=== PATIENT | male | born 1930 | race Caucasian/White ===

== ENCOUNTER 2017-05-18 11:04 | Emergency (ER) | payer MEDICARE, OTHER ==
--- NOTE | 2017-05-18 11:32 | Emergency Department Record ---
History of Present Illness - General Chief Complaint: Recheck - Other Stated Complaint: THINKS HE HAS KIDNEY FAILURE Time Seen by Provider: 05/18/17 11:23 Source: Patient, RN notes reviewed - History of Present Illness Initial Comments: Patient was called to come to the Ed because of renal failure labs drawn by Hien with Dr. Mclain and BUN 176 and creatinine 4.4. K5.1. Patient states not eating or drinking for 2 weeks and taking some ensure and some water. Patient is a DNR patient. No pain, sleeping and last week he had lower back pain. MD Complaint: Abnormal lab - Related Data Allergies Allergy/AdvReac Type Severity Reaction Status Date / Time PENICILLIN Allergy Severe anaphylacti Uncoded 05/18/17 11:17 c Review of Systems Reviewed: No additional complaints except as noted below Constitutional: Reports: As per HPI, Weight change. Denies: Chills, Fever, Malaise, Night sweats, Weakness Eyes: Reports: As per HPI. Denies: Eye discharge, Eye pain, Photophobia, Vision change ENT: Reports: As per HPI. Denies: Congestion, Dental pain, Ear pain, Epistaxis , Hearing loss, Throat pain Respiratory: Reports: As per HPI. Denies: Cough, Dyspnea, Hemoptysis, Stridor, Wheezes Cardiovascular: Reports: As per HPI. Denies: Arrhythmia, Chest pain, Dyspnea on exertion, Edema, Murmurs, Orthopnea, Palpitations, Paroxysmal nocturnal dyspnea, Rheumatic Fever, Syncope Endocrine: Reports: As per HPI. Denies: Fatigue, Heat or cold intolerance, Polydipsia, Polyuria Gastrointestinal: Reports: As per HPI. Denies: Abdominal pain, Constipation, Diarrhea, Hematemesis, Hematochezia, Melena, Nausea, Vomiting Genitourinary: Reports: As per HPI. Denies: Dysuria, Frequency, Hematuria, Incontinence, Retention, Testicular pain, Testicular mass, Urgency Musculoskeletal: Reports: As per HPI. Denies: Arthralgia, Back pain, Gout, Joint swelling, Myalgia, Neck pain Skin: Reports: As per HPI. Denies: Bruising, Change in color, Change in hair/ nails, Lesions, Pruritus, Rash Neurological: Reports: As per HPI. Denies: Abnormal gait, Confusion, Headache, Numbness, Paresthesias, Seizure, Tingling, Tremors, Vertigo, Weakness Psychiatric: Reports: As per HPI. Denies: Anxiety, Auditory hallucinations, Depression, Homicidal thoughts, Suicidal thoughts, Visual hallucinations Hematological/Lymphatic: Reports: As per HPI. Denies: Anemia, Blood Clots, Easy bleeding, Easy bruising, Swollen glands Physical Exam - General General Appearance: Alert, Oriented x3, Cooperative, Moderate distress, Other ( weak ) - Head Head exam: Normal inspection - Eye Eye exam: Normal appearance, PERRL Pupils: Normal accommodation - ENT ENT exam: Mucous membranes dry, Normal external ear exam, Normal orophraynx, TM' s normal bilaterally Ear exam: Normal external inspection. negative: External canal tenderness Nasal Exam: Normal inspection. negative: Discharge, Sinus tenderness Mouth exam: Normal external inspection, Tongue normal Teeth exam: Normal inspection. negative: Dental caries Throat exam: Normal inspection. negative: Tonsillar erythema, Tonsillar exudate - Neck Neck exam: Normal inspection, Full ROM. negative: Tenderness - Respiratory Respiratory exam: Normal lung sounds bilaterally. negative: Respiratory distress - Cardiovascular Cardiovascular Exam: Regular rate, Normal rhythm, Normal heart sounds - GI/Abdominal GI/Abdominal exam: Soft, Normal bowel sounds. negative: Tenderness - Rectal Rectal exam: Deferred - exam: Deferred - Extremities Extremities exam: Normal inspection, Full ROM, Normal capillary refill, Other ( no edema of legs). negative: Tenderness - Back Back exam: Reports: Normal inspection, Full ROM. Denies: Muscle spasm, Rash noted, Tenderness - Neurological Neurological exam: Alert, Normal gait, Oriented X3, Reflexes normal - Psychiatric Psychiatric exam: Normal affect, Normal mood - Skin Skin exam: Dry, Intact, Normal color, Warm Course - Reevaluation(s) Reevaluation #1: Discussed case with Dr. Do and will transfer to [facility] 05/18/17 11:49 Reevaluation #2: rectal exam brown stool loose , hemoccult positive 05/18/17 13:47 Disposition Clinical Impression: Dehydration Renal failure Qualifiers: Renal failure chronicity: acute Acute renal failure type: unspecified Qualified Code(s): N17.9 - Acute kidney failure, unspecified Hypotension Qualifiers: Hypotension type: unspecified hypotension type Qualified Code(s): I95.9 - Hypotension, unspecified Anemia Qualifiers: Anemia type: unspecified type Qualified Code(s): D64.9 - Anemia, unspecified GI bleed Qualifiers: GI bleed type/associated pathology: unspecified gastrointestinal hemorrhage type Qualified Code(s): K92.2 - Gastrointestinal hemorrhage, unspecified Disposition: Acute Care Hospital Transfer Condition: (2) Stable Forms: Patient Portal Access Time of Disposition: 13:49 Quality - Quality Measures Quality Measures: N/A - Blood Pressure Screening Does Patient Have Any of the Following: No Blood Pressure Classification: Normal BP Reading Systolic Measurement: 80 Diastolic Measurement: 50 Screening for High Blood Pressure: < Normal BP, F/U Not Required > [G8783]
[2017-05-18] MEDS ORDERED: 0.9 % SODIUM CHLORIDE 1,000 ML BAG IV ONE (11:37)
[2017-05-18] MEDS ORDERED: 0.9 % SODIUM CHLORIDE 1000ML 1,000 ML IV SCH ×2 (13:15→13:45)
[2017-05-18] MEDS ORDERED: 0.9 % SODIUM CHLORIDE 500ML 500 ML IV SCH (13:15)
--- NOTE | 2017-05-20 08:18 | RADIOLOGY REPORT ---
EXAM: CHEST , SINGLE VIEW HISTORY: COUGH, MALAISE. TECHNIQUE: A single AP sitting view of the chest was obtained. Comparison: None. FINDINGS: the heart size is within normal limits. Calcification and torsion of the aorta. Minor linear fibrosis or discoid atelectasis left base. deformity left mid clavicle likely due to an old healed fracture. Thoracic curve to the right with hypertrophic spurring in the spine. Mild blunting of the left lateral costophrenic angle by fluid or thickened pleura. IMPRESSION: 1. TORSION OF THE AORTA. 2. BLUNTING OF THE LEFT LATERAL COSTOPHRENIC ANGLE BY FLUID OR THICKENED PLEURA , AND SOME MINOR LINEAR FIBROSIS OR DISCOID ATELECTASIS IN THE LEFT BASE. 3. OLD LEFT CLAVICULAR FRACTURE. THORACIC CURVE TO THE RIGHT WITH HYPERTROPHIC SPURRING IN THE SPINE. JOB NUMBER: [id number] MTDD
== END 2017-05-18 13:29 | disposition short-term general hospital (02) ==
LOC: ER 11:04
DX: K92.2 Gastrointestinal hemorrhage, unspecified (principal); R53.1 Weakness; E78.5 Hyperlipidemia, unspecified; N17.9 Acute kidney failure, unspecified; I95.9 Hypotension, unspecified; D64.9 Anemia, unspecified; E86.0 Dehydration
CPT/HCPCS: 71010; 80053; 84484; 85025; 93005; 93010; 99284; 99285

== ENCOUNTER 2017-11-27 14:52 | Inpatient (IN) | payer MEDICARE ==
--- NOTE | 2017-11-27 15:41 | Emergency Department Record ---
History of Present Illness - General Chief Complaint: Fall Injury Stated Complaint: FELL 3X TODAY,LOW BLOOD PRESSURE Time Seen by Provider: 11/27/17 15:32 Source: Patient, RN notes reviewed Mode of Arrival: Wheelchair - History of Present Illness Initial Comments: patient falling times three with a laceration of the right elbow and the skin is no thin to sew. No chest pain or dyspnea and his primary is Hien brown. PMH kidney stones. pale. 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 Fall Witnessed: No Place Fall Occurred: Home Loss of Consciousness: None Prolonged Down Time?: No Symptoms Prior to Fall: None Context: Other Associated Symptoms: Denies - Related Data Home Medications Medication Instructions Recorded Confirmed Last Taken Glyburide [Glyburide] 2.5 mg PO DAILY 11/27/17 11/27/17 Unknown Lisinopril/Hydrochlorothiazide 1 tab PO DAILY 11/27/17 11/27/17 Unknown [Lisinopril-Hctz 20-25 mg Tab] Allergies Allergy/AdvReac Type Severity Reaction Status Date / Time PENICILLIN Allergy Severe anaphylacti Uncoded 05/18/17 11:17 c Travel Screening - Travel/Exposure Within Last 30 Days Have you traveled within the last 30 days?: No Review of Systems Reviewed: No additional complaints except as noted below Constitutional: Reports: As per HPI. Denies: Chills, Fever, Malaise, Night sweats, Weakness, Weight change Eyes: Reports: As per HPI. Denies: Eye discharge, Eye pain, Photophobia, Vision change ENT: Reports: As per HPI. Denies: Congestion, Dental pain, Ear pain, Epistaxis , Hearing loss, Throat pain Respiratory: Reports: As per HPI. Denies: Cough, Dyspnea, Hemoptysis, Stridor, Wheezes Cardiovascular: Reports: As per HPI. Denies: Arrhythmia, Chest pain, Dyspnea on exertion, Edema, Murmurs, Orthopnea, Palpitations, Paroxysmal nocturnal dyspnea, Rheumatic Fever, Syncope Endocrine: Reports: As per HPI. Denies: Fatigue, Heat or cold intolerance, Polydipsia, Polyuria Gastrointestinal: Reports: As per HPI. Denies: Abdominal pain, Constipation, Diarrhea, Hematemesis, Hematochezia, Melena, Nausea, Vomiting Genitourinary: Reports: As per HPI. Denies: Dysuria, Frequency, Hematuria, Incontinence, Retention, Testicular pain, Testicular mass, Urgency Musculoskeletal: Reports: As per HPI. Denies: Arthralgia, Back pain, Gout, Joint swelling, Myalgia, Neck pain Skin: Reports: As per HPI. Denies: Bruising, Change in color, Change in hair/ nails, Lesions, Pruritus, Rash Neurological: Reports: As per HPI. Denies: Abnormal gait, Confusion, Headache, Numbness, Paresthesias, Seizure, Tingling, Tremors, Vertigo, Weakness Psychiatric: Reports: As per HPI. Denies: Anxiety, Auditory hallucinations, Depression, Homicidal thoughts, Suicidal thoughts, Visual hallucinations Hematological/Lymphatic: Reports: As per HPI. 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 - GI Hx GI Disorders: No - Hx Genitourinary Disorders: No - ENDOCRINE Hx Endocrine Disorders: Yes Hx Diabetes: Yes - MUSCULOSKELETAL Hx Musculoskeletal Disorders: No - PSYCH Hx Psych Problems: No - HEMATOLOGY/ONCOLOGY Hx Hematology/Oncology Disorders: No Family Medical History Any Significant Family History?: No Physical Exam - General General Appearance: Alert, Oriented x3, Cooperative, No acute distress - Head Head exam: Normal inspection - Eye Eye exam: Normal appearance, PERRL Pupils: Normal accommodation - ENT ENT exam: Normal exam, Mucous membranes moist, Normal external ear exam, Normal orophraynx, TM's normal bilaterally Ear exam: Normal external inspection. negative: External canal tenderness Nasal Exam: Normal inspection. negative: Discharge, Sinus tenderness Mouth exam: Normal external inspection, Tongue normal Teeth exam: Normal inspection. negative: Dental caries Throat exam: Normal inspection. negative: Tonsillar erythema, Tonsillar exudate - Neck Neck exam: Normal inspection, Full ROM. negative: Tenderness - Respiratory Respiratory exam: Normal lung sounds bilaterally. negative: Respiratory distress - Cardiovascular Cardiovascular Exam: Regular rate, Normal rhythm, Normal heart sounds - GI/Abdominal GI/Abdominal exam: Soft, Normal bowel sounds. negative: Tenderness - Rectal Rectal exam: Prostate enlargement, Other (huma colored stools and hemoccult sent to lab) - exam: Deferred - Extremities Extremities exam: Normal inspection, Full ROM, Normal capillary refill. negative: Tenderness - Back Back exam: Reports: Normal inspection, Full ROM. Denies: Muscle spasm, Rash noted, Tenderness - Neurological Neurological exam: Alert, Normal gait, Oriented X3, Reflexes normal - Psychiatric Psychiatric exam: Normal affect, Normal mood - Skin Skin exam: Dry, Intact, Normal color, Warm Course Vital Signs 11/27/17 15:05 Temperature 98.4 F Pulse Rate 86 Respiratory 20 Rate Blood Pressure 121/63 Pulse Ox 98 - Reevaluation(s) Reevaluation #1: discussed case with Genesis Mattson and will admit. 11/27/17 17:04 11/27/17 17:10 Medical Decision Making - Data Complexity MDM Data: Labs Ordered and/or Reviewed (hg 6.0) - Lab Data Result diagrams: 11/27/17 15:12 11/27/17 15:12 Disposition Clinical Impression: Weight loss Anemia Qualifiers: Anemia type: unspecified type Qualified Code(s): D64.9 - Anemia, unspecified UTI (urinary tract infection) Qualifiers: Urinary tract infection type: acute cystitis Hematuria presence: with hematuria Qualified Code(s): N30.01 - Acute cystitis with hematuria Decision to Admit: Admit from ER Condition: (2) Stable Forms: Patient Portal Access Quality - Quality Measures Quality Measures: N/A - Blood Pressure Screening Does Patient Have Any of the Following: No Blood Pressure Classification: Pre-Hypertensive BP Reading Systolic Measurement: 121 Diastolic Measurement: 63 Screening for High Blood Pressure: < Normal BP, F/U Not Required > [G8783]
[2017-11-27 16:04] LABS: HEMATOCRIT 21.2 % (42.0-52.0); MEAN CELL VOLUME 61.3 fl (81-97); MEAN CORPUSCULAR HEMOGLOBIN 17.3 pg (27-33); MEAN CORPUSCULAR HGB CONC 28.3 g/dl (32-36); MEAN PLATELET VOLUME 8.9 fl (7.4-10.4); PLATELET COUNT 411 K/uL (130-400); RED BLOOD COUNT 3.46 M/uL (4.40-5.70); RED CELL DISTRIBUTION WIDTH 18.7 % (11.5-14.5); WHITE BLOOD COUNT W/O DIFF 13.9 K/uL (4.2-12.2)
[2017-11-27 16:09] LABS: BLOOD UREA NITROGEN 23 mg/dL (8-23); CREATININE 1.2 mg/dL (0.7-1.2); EST GLOMERULAR FILTRATION RATE > 60 mL/min
[2017-11-27 16:12] LABS: GLUCOSE,RANDOM 195 mg/dL (74-109)
[2017-11-27 16:24] LABS: URINE APPEARANCE CLOUDY; URINE BILIRUBIN NEGATIVE (NEGATIVE); URINE BLOOD LARGE (NEGATIVE); URINE COLOR ORANGE; URINE GLUCOSE (UA) NEGATIVE (NEGATIVE); URINE KETONE NEGATIVE (NEGATIVE); URINE LEUKOCYTE ESTERASE LARGE (NEGATIVE); URINE NITRITE NEGATIVE (NEGATIVE); URINE UROBILINOGEN 0.2 E.U./dL (0.20 - 1.00)
[2017-11-27 16:33] LABS: URINE BACTERIA NONE SEEN
[2017-11-27] MEDS ORDERED: CIPROFLOXACIN LACTATE/D5W 400 MG/200 ML BAG IVPB ONE (16:51)
[2017-11-27] MEDS ORDERED: PANTOPRAZOLE SODIUM IV 40 MG VIAL IVP ONE (17:09)
[2017-11-27 18:00] LABS: ABO GROUP O; ANTIBODY SCREEN NEGATIVE (NEGATIVE); RH TYPE POSITIVE
[2017-11-27 18:13] LABS: IMMED. SPIN CROSSMATCH COMPATIBLE
[2017-11-27] MEDS ORDERED: 0.9 % SODIUM CHLORIDE 1000ML 1,000 ML IV PRN (19:08)
[2017-11-27] MEDS: PANTOPRAZOLE SODIUM IV 40 MG VIAL IVP SCH (19:45)
[2017-11-27 20:13] LABS: FERRITIN 125.4 ng/mL (30-400)
[2017-11-27] MEDS: GLIPIZIDE 5 MG TABLET PO SCH (20:49)
[2017-11-27] MEDS: TAMSULOSIN HCL 0.4 MG CAP.ER.24H PO SCH (22:20)
[2017-11-27] MEDS: LEVETIRACETAM 500 MG TABLET PO SCH (22:36)
[2017-11-28] MEDS ORDERED: ACETAMINOPHEN 500 MG TABLET PO PRN (02:34)
[2017-11-28 04:21] LABS: HEMATOCRIT 21.9 % (42.0-52.0); MEAN CORPUSCULAR HEMOGLOBIN 19.2 pg (27-33); MEAN CORPUSCULAR HGB CONC 30.1 g/dl (32-36); MEAN PLATELET VOLUME 8.4 fl (7.4-10.4); PLATELET COUNT 320 K/uL (130-400); RED BLOOD COUNT 3.42 M/uL (4.40-5.70); RED CELL DISTRIBUTION WIDTH 22.4 % (11.5-14.5); WHITE BLOOD COUNT W/O DIFF 10.9 K/uL (4.2-12.2)
[2017-11-28 04:25] LABS: HEMOGLOBIN 6.6 gm/dl (14.0-18.0)
[2017-11-28] MEDS: CIPROFLOXACIN LACTATE/D5W 400 MG/200 ML BAG IVPB SCH ×2 (04:57→17:29)
[2017-11-28] MEDS: PANTOPRAZOLE SODIUM IV 40 MG VIAL IVP SCH (07:08)
[2017-11-28] MEDS: GLIPIZIDE 5 MG TABLET PO SCH (07:09)
[2017-11-28 08:50] LABS: IMMED. SPIN CROSSMATCH COMPATIBLE
--- NOTE | 2017-11-28 10:13 | History & Physical ---
History of Present Illness - Date of Service Date of Service for History & Physical: 11/28/17 - History of Present Illness Admitting Diagnosis: anemia. possible GI bleed with aleve use. UTI History of Present Illness: 87 yo male admitted for anemia and UTI. Patient was brought to our ED by family yesterday after experiencing three separate falls due to weakness. Patient is unsure when his weakness began, however states it was much worse yesterday. According to family, patient was admitted to [facility] about one month ago for difficulty with urination. Patient was evaluated by Urology at that time, though did not want to pursue further workup. Patient was discharged with a carcamo cather which his (prior nurse) removed about 3 weeks later. While in the ED, VSS. Hgb 6.0, hct 21.2, mcv 61, plt 411, wbc 13.9, glucose 195 , UA: orange, 30 protein, large blood and leuks, RBC/WBC too numerous to count, negative nitrite and bacteria. Stool occult negative. Patient typed and crossed. IVF's, IV PPI, and IV Cipro initiated. Patient placed on personnel monitor and admitted for further medical management. In addition to IVF's, 2 Units of PRBCs ordered once patient arrived to floor. Following 2 units of blood, patient's hgb improved to 6.7. Patient made NPO and GI consulted for likely EGD in am. 11/28- Patient lying in bed comfortably with family at bedside. Admits to feeling weak, however denies dizziness, lightheadedness, SOB, STEFANO, CP, fever, cough, pain, dysuria, hematuria, urinary retention or numbness/tingling. Patient does admit to a decreased appetite and ~60 lb weight loss over the past year. States he takes OTC Aleve, one pill, twice daily for chronic back pain. He states he hasn't noticed any black or bright red blood in his stool. No nausea, vomiting or hematemesis. Patient states he follows with Hien Velásquez, however states it's been many months and that he typically doesn't follow with doctors. He's never had a colonoscopy as he's always refused it. He does not have any specialist. Unsure of any family history of CRC. PCP: Hien Velásquez PA-C Travel Screening - Travel/Exposure Within Last 30 Days Have you traveled within the last 30 days?: No - Travel/Exposure Within Last Year Have you traveled outside the [place] in the last year?: No - Additonal Travel Details Have you been exposed to anyone with a communicable illness?: No - Travel Symptoms Symptom Screening: None Review of Systems Constitutional: Reports: Malaise, Weakness. Denies: Chills, Fever, Night sweats , Weight change Respiratory: Denies: Cough, Dyspnea, Hemoptysis, Wheezes Cardiovascular: Denies: Chest pain, Dyspnea on exertion, Edema, Orthopnea, Palpitations, Paroxysmal nocturnal dyspnea, Syncope Endocrine: Reports: Fatigue Gastrointestinal: Denies: Abdominal pain, Constipation, Diarrhea, Hematemesis, Hematochezia, Melena, Nausea, Vomiting Genitourinary: Denies: Dysuria, Frequency, Hematuria Musculoskeletal: Reports: Back pain (chronic, unchanged, no bruising) Skin: Denies: Bruising, Change in color, Change in hair/nails, Lesions, Pruritus , Rash Neurological: Reports: Weakness. Denies: Abnormal gait, Confusion, Headache, Numbness, Paresthesias, Vertigo Hematological/Lymphatic: Reports: Anemia. 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 - GI Hx GI Disorders: No - Hx Genitourinary Disorders: Yes Hx Prostate Problems: Yes Hx UTI: Yes Comment:: HOSPITALIZED 1 MO AGO FOR URINARY RETENTION, HAD CARCAMO CATHETER X 2 WEEKS - ENDOCRINE Hx Endocrine Disorders: Yes Hx Diabetes: Yes (ORAL MED CONTROLLED) - MUSCULOSKELETAL Hx Musculoskeletal Disorders: Yes - PSYCH Hx Psych Problems: No - HEMATOLOGY/ONCOLOGY Hx Hematology/Oncology Disorders: No Family Medical History Any Significant Family History?: No H&P Meds/Allergies - Allergies Allergies: Allergies Allergy/AdvReac Type Severity Reaction Status Date / Time PENICILLIN Allergy Severe anaphylacti Uncoded 05/18/17 11:17 c - Home Medications Home Medications Medication Instructions Recorded Confirmed Last Taken Glyburide [Glyburide] 2.5 mg PO DAILY 11/27/17 11/27/17 Unknown Lisinopril/Hydrochlorothiazide 1 tab PO DAILY 11/27/17 11/27/17 Unknown [Lisinopril-Hctz 20-25 mg Tab] - Active Medications Active Medications: Current Medications Acetaminophen (Tylenol 500mg Tab) 1,000 mg PO Q8H PRN PRN Reason: PAIN/TEMP Last Admin: 11/28/17 02:47 Dose: 1,000 mg Glipizide (Glucotrol) 5 mg PO DAILYAC [facility] Last Admin: 11/28/17 07:09 Dose: Not Given Hydrochlorothiazide (Hctz 25mg) 25 mg PO DAILY [facility] Ciprofloxacin Lactate (Cipro) 400 mg in 200 mls @ 200 mls/hr IVPB Q12H [facility] Stop: 12/03/17 05:01 Last Infusion: 11/28/17 06:00 Dose: Infused Sodium Chloride () 1,000 mls @ 50 mls/hr IV .Q20H PRN PRN Reason: LARGE VOLUME IV Last Admin: 11/28/17 02:45 Dose: 50 mls/hr Levetiracetam (Keppra) 500 mg PO BID [facility] Last Admin: 11/27/17 22:36 Dose: 500 mg Lisinopril (Zestril) 20 mg PO DAILY [facility] Metformin HCl (Glucophage Ir) 1,000 mg PO BIDWM [facility] Pantoprazole Sodium (Protonix Iv) 40 mg IVP Q12H [facility] Tamsulosin HCl (Flomax) 0.4 mg PO DAILY [facility] Last Admin: 11/27/17 22:20 Dose: Not Given Physical Exam - Vital Signs Vital Signs: Vital Signs - Last 24 Hrs Temp Pulse Pulse Pulse Resp BP BP 11/28/17 06:00 98.7 F 64 20 93/57 11/27/17 20:10 99.8 F H 84 20 114/60 11/27/17 19:44 78 94 H 18 11/27/17 18:48 75 18 114/61 Pulse Ox 11/28/17 06:00 95 11/27/17 20:10 96 11/27/17 19:44 11/27/17 18:48 100 - General General Appearance: Alert, Oriented x3, Cooperative, No acute distress - Head Head exam: Normal inspection - Eye Eye exam: Normal appearance, PERRL Pupils: Normal accommodation - ENT ENT exam: Normal exam, Mucous membranes moist, Normal external ear exam, Normal orophraynx, TM's normal bilaterally Ear exam: Normal external inspection. negative: External canal tenderness Nasal Exam: Normal inspection. negative: Discharge, Sinus tenderness Mouth exam: Normal external inspection, Tongue normal Teeth exam: Normal inspection. negative: Dental caries Throat exam: Normal inspection. negative: Tonsillar erythema, Tonsillar exudate - Neck Neck exam: Normal inspection, Full ROM. negative: Tenderness - Respiratory Respiratory exam: Normal lung sounds bilaterally. negative: Respiratory distress - Cardiovascular Cardiovascular Exam: Regular rate, Normal rhythm, Normal heart sounds - GI/Abdominal GI/Abdominal exam: Soft, Normal bowel sounds. negative: Tenderness - Rectal Rectal exam: Deferred (performed while patient in the ER, occult negative). negative: Black stool, Bloody stool - exam: Deferred - Extremities Extremities exam: Normal inspection, Full ROM, Normal capillary refill. negative: Tenderness - Back Back exam: Reports: Normal inspection, Full ROM. Denies: Muscle spasm, Rash noted, Tenderness - Neurological Neurological exam: Alert, Normal gait, Oriented X3, Reflexes normal - Psychiatric Psychiatric exam: Normal affect, Normal mood - Skin Skin exam: Dry, Intact, Pallor, Warm Results - Labs Result Diagrams: 11/28/17 06:17 11/27/17 15:12 Labs Last 24 Hours: Laboratory Results - last 24 hr 11/27/17 11/28/17 11/28/17 19:24 03:45 06:17 WBC 10.9 RBC 3.42 L Hgb 6.6 L* 6.7 L* Hct 21.9 L MCV 64.0 L MCH 19.2 L MCHC 30.1 L RDW 22.4 H Plt Count 320 MPV 8.4 Neutrophils % 72.0 Band Neutrophils % 0.0 Eosinophils % Not Reportable Basophils % Not Reportable Lymphocytes 15.0 L Monocytes 13.0 H Basophils 0.0 Eosinophil Count 0.0 POC Glucose Iron 11 L TIBC 276 % Saturation 3 L Ferritin 125.4 Vitamin B12 259.6 11/28/17 07:37 WBC RBC Hgb Hct MCV MCH MCHC RDW Plt Count MPV Neutrophils % Band Neutrophils % Eosinophils % Basophils % Lymphocytes Monocytes Basophils Eosinophil Count POC Glucose 90 Iron TIBC % Saturation Ferritin Vitamin B12 VTE H&P Assessment - Risk for VTE Risk for VTE: Yes Risk Level: Moderate Risk Assessment Date: 11/28/17 Risk Assessment Time: 09:00 VTE Orders Placed or Will Be Placed: Yes Plan - Inpatient Certification Inpatient Certification: Admit to inpatient care: Based on my medical assessment, after consideration of patient's risk factors (age, co-morbidities and patient presenting symptoms and acuity), I expect that this patient will remain in the hospital greater than or equal to two midnights and that the services needed warrant inpatient care because: Patient Risk Factors: [anemia, weakness, weight loss, uti, fatigue] Estimated length of stay: [3-4 nights] The patient may reasonably be expected to be discharged or transferred to a hospital within 96 hours after admission to [facility]. Services needed: [GI consult, IV antibiotic, blood transfusion, IVFs, personnel monitor] Post hospital care (if known): [home, self care vs. rehab services] I certify that my determination is in accordance with my understanding of Medicare requirements for reasonable and necessary inpatient services. 11/28/17 10:38 - Detailed Diagnosis and Plan (1) Anemia Current Visit: Yes Status: Acute Qualifiers: Anemia type: unspecified type Qualified Code(s): D64.9 - Anemia, unspecified Base Code: D64.9 - ANEMIA, UNSPECIFIED Comment: 11/28 - patient denies any signs of blood loss - LOUIS, iron 11, saturation 3 %, normal TIBC/ferritin - GI consult- EGD today - S/P 2U's of PRBCs, will transfuse one additional as hgb <7 - monitor for any signs of fluid overload- none on exam today. - IV PPI, NPO - consider colonoscopy vs. abdominal CT, potential capsule endoscopy - will replace iron once EGD complete (2) UTI (urinary tract infection) Current Visit: Yes Status: Acute Qualifiers: Urinary tract infection type: acute cystitis Hematuria presence: with hematuria Qualified Code(s): N30.01 - Acute cystitis with hematuria Base Code: N39.0 - URINARY TRACT INFECTION, SITE NOT SPECIFIED Comment: 11/28 - UA: orange, L blood, leuks, too numerous to count RBC/WBC, negative nitrite/ bacteria - cx pending - monitor I's and Os - IV Cipro (3) Weight loss Current Visit: Yes Status: Acute Base Code: R63.4 - ABNORMAL WEIGHT LOSS Comment: 11/28 - unclear etiology. r/o gastrointestinal etiology. - IV PPI - GI consult for likely EGD/Colonoscopy - NPO - possible abdominal CT (4) DVT prophylaxis Current Visit: Yes Status: Acute Base Code: [id number] - Comment: 11/28 - discuss risk vs. benefit, patient moderate-high risk. SCD's ordered. Noting potential GI bleeding, will hold off on anticoagulation. (5) Full code status Current Visit: Yes Status: Acute Base Code: Z78.9 - OTHER SPECIFIED HEALTH STATUS Comment: 11/28 - FULL CODE
[2017-11-28] MEDS: METFORMIN 500 MG TABLET PO SCH ×2 (14:53→17:29)
[2017-11-28] MEDS: HYDROCHLOROTHIAZIDE 25 MG TABLET PO SCH (15:16)
[2017-11-28] MEDS: LISINOPRIL 20 MG TABLET PO SCH (15:16)
[2017-11-28] MEDS: FERROUS SULFATE 325 MG TAB PO SCH (15:16)
[2017-11-28] MEDS: LEVETIRACETAM 500 MG TABLET PO SCH ×2 (15:17→21:24)
[2017-11-28] MEDS: TAMSULOSIN HCL 0.4 MG CAP.ER.24H PO SCH (15:17)
[2017-11-28 15:43] LABS: HEMATOCRIT 27.2 % (42.0-52.0)
[2017-11-28] MEDS ORDERED: PANTOPRAZOLE SODIUM IV 40 MG VIAL IVP SCH (19:00)
[2017-11-29] MEDS: CIPROFLOXACIN LACTATE/D5W 400 MG/200 ML BAG IVPB SCH (05:16)
[2017-11-29 06:34] LABS: BASO % 0.1 % (0-6); EOS % 0.9 % (0-6); GRAN % 73.7 % (47-80); HEMATOCRIT 24.9 % (42.0-52.0); HEMOGLOBIN 7.5 gm/dl (14.0-18.0); LYMPH % 14.7 % (16-45); MEAN CELL VOLUME 65.5 fl (81-97); MEAN CORPUSCULAR HEMOGLOBIN 19.7 pg (27-33); MEAN CORPUSCULAR HGB CONC 30.1 g/dl (32-36); MEAN PLATELET VOLUME 8.7 fl (7.4-10.4); MONO % 10.6 % (0-9); PLATELET COUNT 317 K/uL (130-400); RED CELL DISTRIBUTION WIDTH 24.2 % (11.5-14.5); WHITE BLOOD COUNT W/O DIFF 9.2 K/uL (4.2-12.2)
[2017-11-29] MEDS ORDERED: PANTOPRAZOLE SODIUM 40 MG TABLET PO SCH (07:00)
[2017-11-29 07:10] LABS: BLOOD UREA NITROGEN 15 mg/dL (8-23); EST GLOMERULAR FILTRATION RATE > 60 mL/min; GLUCOSE,RANDOM 99 mg/dL (74-109)
--- NOTE | 2017-11-29 07:58 | CT SCAN REPORT ---
EXAM: EMERGENCY CT UROGRAM HISTORY: GROSS HEMATURIA, URINARY TRACT INFECTION, ANEMIA, CHOLECYSTECTOMY. TECHNIQUE: CT urogram was performed utilizing the standard protocol. Consequently pre-IV contrast media scans were obtained throughout the abdomen and pelvis followed by the split dose post contrast study utilizing 75 ml of Omnipaque 300 followed by images through the kidney at one minute, and then another 75 ml of Omnipaque 300 followed by delayed images through the abdomen and pelvis at ten minutes. Post processing on an independent workstation was performed with multiple 3D MIP and volume rendered series. Comparison: Comparison is made to a prior CT urogram performed at [facility] dated 05/21/17. Comparison is made directly to the images themselves on a separate PACS workstation within the [facility] Radiology Department Reading Room which includes both an [facility] PACS workstation and a [facility] PACS workstation. FINDINGS: The noncontrast images again demonstrate a calcification in the region of the right renal pelvis today measuring about 11 mm in size. This was previously reported at about 5 mm. This may not be causing any current obstruction, however, as there is no delay in appearance of contrast media within the collecting system of the right kidney on the delayed images and contrast passes the level of this calculus into the remainder of the right ureter as well. 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 No intrarenal calculi is seen in the left kidney. There is a small amount of diffuse calcific like density along the dependent portion of the urinary bladder on the pre-contrast images today. This was not apparent previously. This may represent a small amount of gravel like sediment posteriorly in the urinary bladder or could be postoperative in nature if there has been a suture line along the posterior aspect of the bladder. On the post contrast sequence, a right renal cyst is noted along the anterior aspect of the right kidney today measuring about 3.6 cm in size, measuring only 1.6 cm on the prior study. This has a CT density of 16 consistent with a cyst. A considerably enlarged prostate is again evident measuring approximately 6.1 cm in transverse x 5.1 cm in AP diameter and extending up into the floor of the urinary bladder. Correlation with physical exam and serum PSA suggested. No actual bladder mass identified. Surgical clips in the gallbladder fossa consistent with cholecystectomy. On the prior examination note was made of a large mass in the right lobe of the liver measuring about 13.2 cm x 6.8 cm in size. This is again seen today and appears somewhat larger measuring about 15.7 cm in AP x 9 cm in transverse diameters. In addition there are probably a couple new masses further posteriorly in the right lobe of the liver approximately 2.7 cm in diameter each. The large mass has a CT density of 24 which is somewhat indeterminate. The two smaller new masses further posteriorly have somewhat higher density measurements of approximately [address] units. Recommend correlation with prior work-up, but from the CT images alone malignancy cannot be excluded. There are probably additional masses elsewhere in the right and left lobe of the liver as well aligned in close proximity to the dominant large mass, also new from the prior study including a couple in the medial segment left lobe of the liver approximately 2.3 cm and 2 cm in size. No definite splenic, adrenal, or pancreatic mass identified. Some ectasia of the infrarenal abdominal aorta measuring up to about 2.7 cm. On the prior study there is some asymmetric wall thickening of the rectum noted. The entire rectum is not included today with the scans terminating at the level of the enlarged prostate, but in the visualized upper rectum no definite abnormal wall thickening is seen. Mild diverticulosis left side of the colon, but no diverticulitis evident. Evaluation of the bowel is quite limited without oral contrast inherent in the CT urography protocol. Small bibasilar effusions with some minor bibasilar atelectasis or infiltrate. No free intraperitoneal air or free intraperitoneal fluid identified. Multilevel degenerative change in the spine with multilevel lumbar spinal stenosis most marked at the L3-L4 level. IMPRESSION: 1. 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 2. PERSISTENT CALCULUS IN THE RIGHT RENAL PELVIS AT ABOUT THE LEVEL OF THE RIGHT UPJ, LARGER THAN BACK ON 05/21/17, NOT DEFINITELY CAUSING OBSTRUCTION CURRENTLY, BUT MAY BE CAUSING INTERMITTENT UPJ OBSTRUCTION GIVEN ITS LOCATION. 3. APPROXIMATELY 3.6 CM APPARENT ENLARGING CYST RIGHT KIDNEY. 4. ENLARGED PROSTATE INDENTING THE FLOOR OF THE URINARY BLADDER. 5. APPEARANCE SUGGESTING TINY GRAVEL LIKE STONES IN THE DEPENDENT PORTION OF THE URINARY BLADDER ON THE PRE-CONTRAST SERIES ALTHOUGH COULD ALSO REPRESENT POSTOPERATIVE CHANGE ALONG THE POSTERIOR WALL OF THE BLADDER IN THE APPROPRIATE CLINICAL SETTING. THIS IS NEW COMPARED TO THE PRIOR CT UROGRAM. 6. LARGE MASS RIGHT LOBE OF THE LIVER PROBABLY EXTENDING INTO THE LEFT LOBE WHICH HAS INCREASED IN SIZE FROM THE PRIOR EXAM. THERE APPEAR TO BE NEW ADDITIONAL SATELLITE MASSES IN THE LIVER WELL. RECOMMEND CORRELATION WITH PRIOR WORK-UP, BUT MALIGNANCY CANNOT BE EXCLUDED BASED ON THE CURRENT APPEARANCE. 7. SMALL AMOUNT OF ASCITES ADJACENT TO THE LIVER. 8. MILD ECTASIA OF THE INFRARENAL ABDOMINAL AORTA. 9. EXTENSIVE DEGENERATIVE CHANGE IN THE SPINE WITH MULTILEVEL LUMBAR SPINAL STENOSIS PARTICULARLY AT THE L3-L4 LEVEL. 10. SMALL BIBASILAR EFFUSIONS WITH SOME MILD BIBASILAR ATELECTASIS OR INFILTRATE. JOB NUMBER: [id number] [facility]
[2017-11-29] MEDS: GLIPIZIDE 5 MG TABLET PO SCH ×2 (08:25→08:26)
[2017-11-29] MEDS: METFORMIN 500 MG TABLET PO SCH (08:27)
[2017-11-29] MEDS ORDERED: PROPOFOL 10 MG/ML VIAL IV ONE (08:36)
[2017-11-29] MEDS ORDERED: LIDOCAINE 2% MDV (20MG/ML) 20ML VIAL IV ONE (08:36)
[2017-11-29] MEDS ORDERED: EPHEDRINE SULFATE 50 MG/ML ML IV ONE (08:36)
--- NOTE | 2017-11-29 09:29 | Discharge Summary ---
Providers Discharge Summary Date: 11/29/17 Date of admission: 11/27/17 18:35 Expected Date of Discharge: 11/29/17 Attending physician: MARA VALDIVIA Primary care physician: DAVID VELÁSQUEZ Consults: Consult Orders 11/27/17 19:26 Consult NOW Consulting Provider: MIKY MUJICA Instructions: Reason For Exam: anemia Physical Exam - Vital Signs Vital Signs: Vital Signs - Last 24 Hrs Temp Pulse Resp BP BP Pulse Ox 11/29/17 08:00 98.9 F 84 127/66 95 11/29/17 06:00 97.9 F 92 H 20 110/63 95 11/29/17 00:41 98.2 F 92 H 20 121/61 96 11/28/17 20:22 72 16 11/28/17 20:05 98.5 F 75 20 110/58 96 11/28/17 18:00 97.8 F 81 16 109/60 97 11/28/17 15:30 97.7 F 66 14 131/68 98 11/28/17 15:15 97.8 F 61 14 128/68 98 11/28/17 15:00 97.8 F 83 16 133/66 98 11/28/17 10:00 97.9 F 64 18 97/55 96 - General General Appearance: Alert, Oriented x3, Cooperative, No acute distress - Head Head exam: Normal inspection - Eye Eye exam: Normal appearance, PERRL Pupils: Normal accommodation - ENT ENT exam: Normal exam, Mucous membranes moist, Normal external ear exam, Normal orophraynx, TM's normal bilaterally Ear exam: Normal external inspection. negative: External canal tenderness Nasal Exam: Normal inspection. negative: Discharge, Sinus tenderness Mouth exam: Normal external inspection, Tongue normal Teeth exam: Normal inspection. negative: Dental caries Throat exam: Normal inspection. negative: Tonsillar erythema, Tonsillar exudate - Neck Neck exam: Normal inspection, Full ROM. negative: Tenderness - Respiratory Respiratory exam: Normal lung sounds bilaterally. negative: Respiratory distress - Cardiovascular Cardiovascular Exam: Regular rate, Normal rhythm, Normal heart sounds - GI/Abdominal GI/Abdominal exam: Soft, Normal bowel sounds. negative: Tenderness - Rectal Rectal exam: Deferred (performed while patient in the ER, occult negative). negative: Black stool, Bloody stool - exam: Deferred - Extremities Extremities exam: Normal inspection, Full ROM, Normal capillary refill. negative: Tenderness - Back Back exam: Reports: Normal inspection, Full ROM. Denies: Muscle spasm, Rash noted, Tenderness - Neurological Neurological exam: Alert, Normal gait, Oriented X3, Reflexes normal - Psychiatric Psychiatric exam: Normal affect, Normal mood - Skin Skin exam: Dry, Intact, Pallor, Warm Hospitalization - Hospitalization Admission Diagnosis: anemia. possible GI bleed with aleve use. UTI - Problem List/Discharge Diagnosis (1) Anemia Current Visit: Yes Status: Acute Discharge Diagnosis: Anemia type: unspecified type Qualified Code(s): D64.9 - Anemia, unspecified Base Code: D64.9 - ANEMIA, UNSPECIFIED Comment: 11/29 - patient denies any signs of blood loss (hematochezia, melena or hematemesis) - LOUIS, iron 11, saturation 3 %, normal TIBC/ferritin. negative occult blood. - EGD- gastritis, OP Colonoscopy TuesdayDecember [address] Mujica. Discussed risk /benefit of procedure. patient would like to go forth with colonic lesion r/o. - S/P 3 U's of PRBCs, hgb 6->8-> 7.5 - patient feeling less weak at this time. Appears patient's Hgb was ~ 7.5 while hospitalized at [facility] last fall. - PO PPI therapy for noted gastritis on EGD. - patient will need to start iron supp once colonosocpy has been completed. - he will return , Tuesday and Tuesday for outpatient blood draw (CBC, AFP, hep b, c ab). Order to transfuse at least 1 U of PRBC if hgb <7.5. - patient will fup with Dr. Valdivia on TuesdayDecember 07 at 1:00 pm. Family and patient agree to return to the ER in the [facility] re any new or worsnening symptoms. Encouraged patient to go to a larger hospital (i.e [facility] or [facility]) as these have specialist that patient may benefit from seeing if he's interested in persuing further care. (2) UTI (urinary tract infection) Current Visit: Yes Status: Acute Discharge Diagnosis: Urinary tract infection type: acute cystitis Hematuria presence: with hematuria Qualified Code(s): N30.01 - Acute cystitis with hematuria Base Code: N39.0 - URINARY TRACT INFECTION, SITE NOT SPECIFIED Comment: 11/29 - UA: orange, L blood, leuks, too numerous to count RBC/WBC, negative nitrite/ bacteria - not likely infectious, however cx pending - d/c with PO Cipro to complete 3 day course (3) Weight loss Current Visit: Yes Status: Acute Base Code: R63.4 - ABNORMAL WEIGHT LOSS Comment: 11/29 - malignancy vs. decreased po intake vs. other? - EGD- gastritis. patient will continue PO PPI therapy as outpatient. - he will need IR referral if patient chooses to persue liver mass work up. - outpatient colonoscopy with Dr. Mujica TuesdayDecember 05 to r/o colonic lesion noting wt loss and LOUIS. (4) Liver lesion Current Visit: Yes Status: Acute Base Code: K76.9 - LIVER DISEASE, UNSPECIFIED Comment: 11/29 - CT urogram- large mass right lobe of the liver probably extending into the left lobe which has increased in size from the prior exam. there appear to be new additional satellite masses in the liver as well. malignancy cannot be excluded. will order AFP, hep B & C studies (patient with tattoo that was not done in [facility]. he's not sure if he's had hepatitis screen). - discussed patient's liver lesion with family. Patient was told about liver lesion during hospital stay at [facility], however did not want to persue further testing at that time. Informed family that patient will likely require biopsy by an Interventional Radiologist to evaluate liver tissue. Encouraged patient and family to consider this. Patient has outpatient follow up with Dr. Valdivia. An outpatient IR referral can be made if that's something patient and family would like to persue. (5) Pleural effusion Current Visit: Yes Status: Acute Base Code: J90 - PLEURAL EFFUSION, NOT ELSEWHERE CLASSIFIED Comment: 11/29 - CT Urogram- small bibasilar eff w/ some mild bibasilar atelectasis or infiltrate - ordered outpatient CXR to re evaluate patient's pleural effusion, along with atelectasis vs. opacity. patient is aferbile. no cough, STEFANO, or fever. (6) Enlarged prostate Current Visit: Yes Status: Acute Base Code: N40.0 - BENIGN PROSTATIC HYPERPLASIA WITHOUT LOWER URINRY TRACT SYMP Comment: 11/29- enlarged prostate indenting the floor of the urinary bladder. patient refusing any further urologic medical management as stated below. Once again, patient made aware of CT Urogram findings. (7) Renal calculi Current Visit: Yes Status: Acute Base Code: N20.0 - CALCULUS OF KIDNEY Comment: 11/29 - CT urogram demonstrated persistent calculus in the right renal pelvis at about the level of the R UPJ, larger than 05/21/17. no definitely obstructing but may be causing intermittent UPJ obstruction given the location - 3.6 cm apparent enlarging cyst right renal - informed patient and family. Patient previously followed with Dr. Mayes ( urology), who I spoke with during patient's stay. According to Dr. Mayes, patient refused any further Urologic medical management back in May 2017. (8) Full code status Current Visit: Yes Status: Acute Base Code: Z78.9 - OTHER SPECIFIED HEALTH STATUS Comment: 11/29 - FULL CODE - Hospitalization Course Hospital Course: 87 yo male admitted for anemia and UTI. Patient was brought to our ED by family yesterday after experiencing three separate falls due to weakness. Patient is unsure when his weakness began, however states it was much worse yesterday. According to family, patient was admitted to [facility] about one month ago for difficulty with urination. Patient was evaluated by Urology at that time, though did not want to pursue further workup. Patient was discharged with a carcamo cather which his (prior nurse) removed about 3 weeks later. While in the ED, VSS. Hgb 6.0, hct 21.2, mcv 61, plt 411, wbc 13.9, glucose 195 , UA: orange, 30 protein, large blood and leuks, RBC/WBC too numerous to count, negative nitrite and bacteria. Stool occult negative. Patient typed and crossed. IVF's, IV PPI, and IV Cipro initiated. Patient placed on product specialist and admitted for further medical management. In addition to IVF's, 2 Units of PRBCs ordered once patient arrived to floor. Following 2 units of blood, patient's hgb improved to 6.7. Patient made NPO and GI consulted for likely EGD in am. 11/28- Patient lying in bed comfortably with family at bedside. Admits to feeling weak, however denies dizziness, lightheadedness, SOB, STEFANO, CP, fever, cough, pain, dysuria, hematuria, urinary retention or numbness/tingling. Patient does admit to a decreased appetite and ~60 lb weight loss over the past year. States he takes OTC Aleve, one pill, twice daily for chronic back pain. He states he hasn't noticed any black or bright red blood in his stool. No nausea, vomiting or hematemesis. Patient states he follows with David Velásquez, however states it's been many months and that he typically doesn't follow with doctors. He's never had a colonoscopy as he's always refused it. He does not have any specialist. Unsure of any family history of CRC. PCP: David Velásquez PA-C 11/29- patient sitting up in chair with a lot of family at bedside. Patient refusing to stay and threatening to rip his IV out. Patient has been ambulating the room. states he feels much stronger than when he came in. he's urinating well, though frequent (patient has refused further urologic work up in the past & is now as well). Patient and nursing deny any signs of GI blood loss (i.e- no black or bloody stool or hematemesis). Tolerating meals well. Procedures: Imaging and X-Rays 11/28/17 13:01 ABDOMEN/PELVIS WWO CONTRAST [CT] Stat Abnormal Labs: Abnormal Lab Results 11/27/17 11/28/17 11/28/17 Range/Units 19:24 03:45 06:17 RBC 3.42 L (4.40-5.70) M/uL Hgb 6.6 L* 6.7 L* (14.0-18.0) gm/dl Hct 21.9 L (42.0-52.0) % MCV 64.0 L (81-97) fl MCH 19.2 L (27-33) pg MCHC 30.1 L (32-36) g/dl RDW 22.4 H (11.5-14.5) % Lymphocytes % (16-45) % Monocytes % (0-9) % Lymphocytes 15.0 L (16-45) % Monocytes 13.0 H (0-9) % Calcium (8.8-10.2) mg/dL Iron 11 L (59-158) ug/dL % Saturation 3 L (20-50) % 11/28/17 11/29/17 11/29/17 Range/Units 15:29 06:19 06:19 RBC 3.80 L (4.40-5.70) M/uL Hgb 8.0 L 7.5 L (14.0-18.0) gm/dl Hct 27.2 L 24.9 L (42.0-52.0) % MCV 65.5 L (81-97) fl MCH 19.7 L (27-33) pg MCHC 30.1 L (32-36) g/dl RDW 24.2 H (11.5-14.5) % Lymphocytes % 14.7 L (16-45) % Monocytes % 10.6 H (0-9) % Lymphocytes (16-45) % Monocytes (0-9) % Calcium 8.1 L (8.8-10.2) mg/dL Iron (59-158) ug/dL % Saturation (20-50) % Condition at Discharge: (2) Stable Discharge Medications - Discharge Medications Prescriptions: Ciprofloxacin HCl [Cipro] 500 mg PO Q12HR #4 tablet Ferrous Sulfate [Iron] 325 mg PO DAILY #30 tablet Pantoprazole Sodium [Protonix] 40 mg PO DAILYAC #30 tablet. Home Medications: Ambulatory Orders Glyburide 2.5 mg PO DAILY 11/27/17 [Last Taken Unknown] Lisinopril/Hydrochlorothiazide [Lisinopril-Hctz 20-25 mg Tab] 1 tab PO DAILY [Last Taken Unknown] Albuterol Sulfate [Ventolin Hfa] 2 puff IH PRN 11/29/17 [Last Taken 11/28/17 12: 00 2] Ciprofloxacin HCl [Cipro] 500 mg PO Q12HR #4 tablet 11/29/17 [Last Taken Unknown ] Ferrous Sulfate [Iron] 325 mg PO DAILY #30 tablet 11/29/17 [Last Taken Unknown] Pantoprazole Sodium [Protonix] 40 mg PO DAILYAC #30 tablet. 11/29/17 [Last Taken Unknown] Discharge Plan - Discharge Instructions Activity at Discharge: Increase Activity as Tolerated Diet at Discharge: Regular Diet, Diabetic Diet Instructions: Iron Rich Diet (DC), Fall Prevention for Older Adults (DC), Anemia (DC) Additional Instructions: 2 Activity: Increase Activity as Tolerated 2 Diet: Regular Diet Diabetic Diet 2 Consults: [] 2 Follow Up: [You will be following with Dr. Valdivia TuesdayDecember 07 at 1: 00pm. This appointment is here in [place] [facility].] 2 Dressing/Wound Care: (Type) (Change) 2 Additional: [] Continue home medications. In addition, will start you on: 1. daily iron supplement (please take with stool softner as this may caused constipation). Please don't start taking this until the colonoscopy is over. 2. Pantoprazole once daily- this should be taken 30 minutes prior to a meal 3. Cipro- you will need to take this twice daily for the next 2 days, please start taking medication tonight at 6pm ALL OF THESE ADDITIONAL MEDICATIONS WERE CALLED INTO YOUR PHARMACY. You have a colonoscopy scheduled Tuesday (12/05/17). Please follow the [employer] nursing instructions regarding preparation for the procedure and what medications to stop. Please return to the hospital on , tuesday and tuesday for blood draw to evaluate hemoglobin and hematocrit. If hemoglobin is less than 7, you will need to be transfused 1 unit of blood. Please return to the ER (preferably [facility] or [facility]) if you notice any dizziness, lightheadedness, chest pain, diff in breathing, bloody or black stool , or if you're throwing up any blood. Colonoscopy scheduled with Dr Mujica December 05, at 7:00am / Family given prep instructions 11/28/2017. Will machine operator picker script at [facility] pharmacy Quality Measures - Quality Measures Quality Measures: Advance Directives, Documentation of Current Medications in Medical Record, Elder Maltreatment Screen and Follow-Up Plan, Screening for High Blood Pressure and F/U Documented - Current Medications Quality Measure: Measure #130: Documentation of Current Medications Documentation of Current Medications: <Current Medications Documented/Reviewed> [G8427] - Blood Pressure Screening Quality Measure: Screening for High Blood Pressure and Follow-Up Documented Does Patient Have Any of the Following: No Blood Pressure Classification: Normal BP Reading Systolic Measurement: 114 Diastolic Measurement: 61 Screening for High Blood Pressure: < Normal BP, F/U Not Required > [G8783] - Advance Directives Quality Measure: Measure #47: Care Plan Advance Directives Established: No Advance Directives Information Provided To Patient: Declined Advance Directives on File: No Living Will: No Power of Commercial Sales Representative: No Advance Care Planning: <Care Plan/Decision Maker Documented; Discussed & Documented> [3093F] - Elder Abuse Suspicion Index Screening: Elder Abuse Suspicion Index Screening Rely on people for bathing, dressing, shopping, banking, etc: No Prevented from getting food, clothes, medication, etc: No Made to feel shamed or threatened by someone: No Forced to sign papers or use money against will: No Feel afraid, touched in ways not wanted or hurt physically: No Poor eye contact, withdrawn, malnourished, cuts or bruises: No Screening Result: Negative result EASI Reference Information: Jatin HOOVER, Martin C, Korin Alvarez, Jane Glass.Development and validation of a tool to assist physicians identification of elder abuse: The Elder Abuse Suspicion Index (EASI ). Journal of Elder Abuse and Neglect, 2008; 20 (3): 276-300. - Elder Maltreatment Screen Quality Measures: Elder Maltreatment Screen and Follow-Up Plan Elder Maltreatment Screen: <Negative, No Follow-Up Plan Required> [H3924]
[2017-11-29] MEDS: TAMSULOSIN HCL 0.4 MG CAP.ER.24H PO SCH (10:16)
[2017-11-29] MEDS: LISINOPRIL 20 MG TABLET PO SCH (10:17)
[2017-11-29] MEDS: HYDROCHLOROTHIAZIDE 25 MG TABLET PO SCH (10:17)
[2017-11-29] MEDS: FERROUS SULFATE 325 MG TAB PO SCH (10:18)
[2017-11-29] MEDS: LEVETIRACETAM 500 MG TABLET PO SCH (10:19)
--- NOTE | 2017-11-29 11:41 | Medical Records Consult ---
DATE OF CONSULTATION: 11/28/2017 REASON FOR CONSULTATION: The patient is a pleasant 87-year-old male seen in consultation at the request of his attending physicians for evaluation of marked anemia. He was admitted through the emergency department yesterday following a fall. He had apparently suffered through 3 falls the day of admission with hypotension. He had a laceration on his right elbow. From a GI standpoint, he denies any melena or hematochezia. He denies any nausea or vomiting. He does complain of some right upper quadrant discomfort which has been persistent. He also claims to have a diminished appetite. He states that he lost approximately 50 pounds over the past year, and the cause for this is unclear. It could be related to his reduced appetite, at least in part. PAST MEDICAL HISTORY: Hypertension, diabetes. He also suffers with arthritis and has been taking Aleve 2 tablets daily; one in the morning and one in the evening. He denies previous colonoscopy or upper endoscopy. He denies tobacco or alcohol consumption. ALLERGIES: PENICILLIN. REVIEW OF SYSTEMS: Noted in the medical record and reviewed. He did have a TIA in the past. He also suffers with kidney stones. PHYSICAL EXAMINATION: GENERAL: He seems alert and oriented. NECK: Supple. HEART: Regular. LUNGS: Clear. ABDOMEN: Soft. There is no rebound, rigidity, or guarding. RECTAL: Examination completed in the emergency room demonstrated an enlarged prostate. Stool was huma-colored and Hemoccult negative. EXTREMITIES: Free from edema. NEUROMUSCULAR: Examination seems to be grossly unremarkable. VITAL SIGNS: Stable. He was afebrile. LABORATORY DATA: On admission, hemoglobin 6.0 with hypochromic microcytic indices. His white blood cell count was elevated at 13.9, platelet count is elevated at 411. Recheck hemoglobin after 2 units of packed red blood cells transfused increased his level to 6.7 only. His BUN and creatinine were 23 and 1.2, respectively. Iron is 11, TIBC 276, percent saturation 3, ferritin level 125.4. Urinalysis demonstrates large amount of blood noted. Stool Hemoccult, as mentioned, was negative. IMPRESSION: The patient suffers with marked anemia with 6 g hemoglobin with hyperchromic microcytic indices. He does demonstrate some evidence of iron deficiency. There is no overt GI bleeding and he did have hematuria noted on urinalysis. He does complain of some right upper quadrant discomfort which is rather constant. He has been taking Aleve 2 tablets daily. He has lost approximately 50 pounds over the past year. Further evaluation into particularly evaluating his weight loss, diminished appetite, and right upper quadrant pain, I will proceed with upper endoscopy. Further recommendations may be forthcoming. It may be reasonable to consider CT scan of the abdomen and pelvis if endoscopy proves unremarkable. Thank you for allowing me to participate in his care. CC: Dr. Shea AVINA
--- NOTE | 2017-11-29 12:40 | Operative Note ---
DATE OF SURGERY: 11/28/2017 OPERATION: ESOPHAGOGASTRODUODENOSCOPY. INDICATION: Marked anemia with hemoglobin in 6 g range. He does take Aleve twice daily 1 pill each time. Upper endoscopy is performed at this time for further evaluation of this as well as a complaint of right upper quadrant pain and anorexia with a 50-pound weight loss over the past year. ANESTHESIA: Intravenous sedation was administered by the department of anesthesiology and included Diprivan titrated to effect. PROCEDURE: Following informed consent from this alert individual, including a discussion of the risks and benefits of the procedure and an opportunity for the patient to ask questions, the patient was in the left lateral decubitus position. The Olympus [id number] video endoscope was inserted into the esophagus without resistance. The proximal esophagus had a normal appearance with normal folds and distensibility. The mid and distal esophagus likewise was free from changes. The squamocolumnar junction approximated the diaphragmatic hiatus. This structure was traversed and the stomach was entered. The gastric fundus and pars media had a normal appearance with normal folds and distensibility. The antrum evaluated circumferentially demonstrated multiple superficial erosions without bleeding. Pylorus is patent. Duodenal bulb, sweep, and descending duodenum were examined in a serial fashion and found to be normal. The endoscope was then withdrawn back into the body of the stomach, where retroflexion accomplished following air insufflation revealed a normal proximal stomach. The endoscope was then straightened and withdrawn. The patient tolerated the procedure well and was returned to the recovery area in stable condition. IMPRESSION: Nonbleeding erosive antral gastritis perhaps related to NSAIDs. RECOMMENDATION: I discussed my findings at this time with the primary service. They found records from an outside hospital ([facility]) suggesting possible liver mass. The patient never had a colonoscopy, so this will be offered to him. Further recommendations pending. As always, thank you for allowing me to participate in the care of your patient. CC: Hien AVINA
== END 2017-11-29 10:45 | disposition home or self-care (01) | DRG 187 ==
LOC: ER 14:52 → MEDSURG 18:35
PROVIDERS: ADMIT Internal Medicine; ATTEND Internal Medicine
PROC: 0DJ08ZZ Inspection of Upper Intestinal Tract, Via Natural or Artificial Opening Endoscopic (ICD-10-PCS; principal; 2017-11-28)
DX: S51.012A Laceration without foreign body of left elbow, initial encounter (principal); J90 Pleural effusion, not elsewhere classified; N30.01 Acute cystitis with hematuria; K29.60 Other gastritis without bleeding; K76.9 Liver disease, unspecified; W19.XXXA Unspecified fall, initial encounter; D64.9 Anemia, unspecified; R63.4 Abnormal weight loss; I95.9 Hypotension, unspecified; N20.0 Calculus of kidney; E11.9 Type 2 diabetes mellitus without complications; I10 Essential (primary) hypertension; Z86.73 Personal history of transient ischemic attack (TIA), and cerebral infarction without residual deficits; Z79.1 Long term (current) use of non-steroidal anti-inflammatories (NSAID); Z87.820 Personal history of traumatic brain injury; Z79.84 Long term (current) use of oral hypoglycemic drugs; N40.0 Benign prostatic hyperplasia without lower urinary tract symptoms
CPT/HCPCS: 99285 ×2; 96374; 85730; 80048; 81001; 82272; 85027; 86900; 86901; 86850; 93005; 93010; J0744; 36416; 36430; 74178; 82607; 82728; 82948; 83550; 85014; 85018; 85025; 99223; 99239; C9113

== ENCOUNTER 2017-12-05 07:06 | Day surgery (SDC) | payer MEDICARE ==
[2017-12-05] MEDS ORDERED: GLYCOPYRROLATE 0.2 MG/ML ML IV ONE (07:07)
[2017-12-05] MEDS ORDERED: LIDOCAINE 2% MDV (20MG/ML) 20ML VIAL IV ONE (07:07)
[2017-12-05] MEDS ORDERED: EPHEDRINE SULFATE 50 MG/ML ML IV ONE (07:07)
[2017-12-05] MEDS ORDERED: 0.9 % SODIUM CHLORIDE 10 ML VIAL IVP ONE (07:07)
[2017-12-05] MEDS ORDERED: PROPOFOL 10 MG/ML VIAL IV ONE (07:07)
--- NOTE | 2017-12-06 12:31 | Operative Note ---
DATE OF SURGERY: 12/05/2017 OPERATION: COLONOSCOPY with biopsy, electrocautery snare polypectomy, 1:10,000 epinephrine solution injection, ink spot tattooing x2. INDICATION: Marked anemia. Rule out lower GI tract source of blood loss. The patient had a previous upper endoscopy demonstrating nonbleeding erosive gastritis. ANESTHESIA: Intravenous sedation was administered by the department of anesthesiology and included Diprivan titrated to effect. PROCEDURE: Following informed consent from this alert individual including a discussion of the risks and benefits of the procedure and an opportunity for the patient to ask questions and after a discussion with the family, the patient was in the left lateral decubitus position. A digital rectal examination was performed. Prostate was enlarged and firm. Following this, the Olympus [id number] video colonoscope was inserted into the rectum without resistance. The rectal mucosa itself had a normal appearance with normal folds and distensibility. The colonoscope was advanced up into the sigmoid region where a large broad-based polyp was noted. It appeared villous in type. It was initially traversed. The colonoscope was advanced up the descending colon to the transverse colon. In the region of the distal transverse colon, there was a large nearly obstructing circumferential mass noted. It was quite large measuring approximately 5-6 cm in overall diameter. This polyp was biopsied and then the site was injected with ink spot tattoo for localization for anticipated surgery. The colonoscope could not be advanced beyond this mass due to its near-obstructing property. From this point, the colonoscope was then withdrawn. At approximately 30 cm from the anal verge, there was the above-noted broad-based sessile polyp. Utilizing electrocautery snare, the polyp was removed in part; however, after a significant portion was removed, it was obvious that the base was, in fact, broad and endoscopic complete polypectomy did not seem possible. The polyp site also started bleeding significantly and ultimately stopped spontaneously. Epinephrine 1:10,000 solution totally 2 mL with two 1 mL injections each also probably controlled the bleeding. It became obvious that this polyp could not be removed endoscopically, and for this reason, ink tattooing was applied to this site as well. Colonoscope was then further withdrawn. At approximately 15 cm from the anal verge approximately in the rectosigmoid junction there was a 3rd polyp which was somewhat pedunculated. This polyp measured 1.5 cm across the head. It was removed with electrocautery snare with a white eschar noted and no bleeding. The colonoscope was then withdrawn. The patient tolerated the procedure well and was returned to the recovery area in stable condition. IMPRESSION: 1. Large 5-6 cm circumferential mass approximating the distal transverse colon, status post biopsy and ink spot tattooing. 2. Large sessile adenomatous-appearing polyp measuring approximately 3 cm, partially removed from the sigmoid colon. Bleeding started and then stopped. Epinephrine solution was applied as described above, and the sit was ink spot tattooed as well. 3. A 1.5 cm pedunculated polyp removed from the rectosigmoid junction at approximately 15 cm from the anal verge. RECOMMENDATIONS: Post-polypectomy instructions given to the patient and family in oral and written form. The patient will be seeing Dr. Baljeet Patel for anticipated colon resection. Followup will also be with PENELOPE Leblanc. As always, thank you for allowing me to participate in the care of your patient. CC: Baljeet Patel, PENEL[facility] Huber [facility]
== END 2017-12-05 09:38 | disposition home or self-care (01) ==
LOC: HOP 07:06
PROVIDERS: ATTEND Internal Medicine Gastroenterology
DX: C18.7 Malignant neoplasm of sigmoid colon (principal); D12.3 Benign neoplasm of transverse colon; D12.7 Benign neoplasm of rectosigmoid junction; D64.9 Anemia, unspecified; I10 Essential (primary) hypertension; E11.9 Type 2 diabetes mellitus without complications; Z79.84 Long term (current) use of oral hypoglycemic drugs

== ENCOUNTER 2017-12-12 09:00 | Emergency (ER) | payer MEDICARE ==
--- NOTE | 2017-12-12 09:24 | Emergency Department Record ---
History of Present Illness - General Chief Complaint: Hypotension Stated Complaint: HYPOTENSIVE Time Seen by Provider: 12/12/17 09:09 Source: Patient, Family Mode of Arrival: Ambulatory Limitations: No limitations - History of Present Illness Initial Comments: pt went to see dr duke and was found to have bp of 70/. pt has recent hx of colon ca and anemia requiring transfusions Complaint: Dizziness, Lightheadedness Timing: Unsure Description: Lightheadedness Improves With: Nothing Worsens With: Nothing Associated Symptoms: Denies other symptoms - [place] Coma Scale Eye Response: (4) Open spontaneously Motor Response: (6) Obeys commands Verbal Response: (5) Oriented [place] Total: 15 - Symptoms of Stroke Symptoms of stroke: Dizziness - Related Data Previous Rx's Medication Instructions Recorded Ferrous Sulfate [Iron] 325 mg PO DAILY #30 tablet 11/29/17 Pantoprazole Sodium [Protonix] 40 mg PO DAILYAC #30 tablet. 11/29/17 Allergies Allergy/AdvReac Type Severity Reaction Status Date / Time PENICILLIN Allergy Severe anaphylacti Uncoded 12/12/17 09:03 c Travel Screening - Travel/Exposure Within Last 30 Days Have you traveled within the last 30 days?: No Review of Systems Reviewed: No additional complaints except as noted below Constitutional: Reports: As per HPI, Weakness. Denies: Chills, Fever, Malaise, Night sweats, Weight change Eyes: Reports: As per HPI. Denies: Eye discharge, Eye pain, Photophobia, Vision change ENT: Reports: As per HPI. Denies: Congestion, Dental pain, Ear pain, Epistaxis , Hearing loss, Throat pain Respiratory: Reports: As per HPI. Denies: Cough, Dyspnea, Hemoptysis, Stridor, Wheezes Cardiovascular: Reports: As per HPI. Denies: Arrhythmia, Chest pain, Dyspnea on exertion, Edema, Murmurs, Orthopnea, Palpitations, Paroxysmal nocturnal dyspnea, Rheumatic Fever, Syncope Endocrine: Reports: As per HPI. Denies: Fatigue, Heat or cold intolerance, Polydipsia, Polyuria Gastrointestinal: Reports: As per HPI. Denies: Abdominal pain, Constipation, Diarrhea, Hematemesis, Hematochezia, Melena, Nausea, Vomiting Genitourinary: Reports: As per HPI. Denies: Dysuria, Frequency, Hematuria, Incontinence, Retention, Testicular pain, Testicular mass, Urgency Musculoskeletal: Reports: As per HPI. Denies: Arthralgia, Back pain, Gout, Joint swelling, Myalgia, Neck pain Skin: Reports: As per HPI. Denies: Bruising, Change in color, Change in hair/ nails, Lesions, Pruritus, Rash Neurological: Reports: As per HPI. Denies: Abnormal gait, Confusion, Headache, Numbness, Paresthesias, Seizure, Tingling, Tremors, Vertigo, Weakness Psychiatric: Reports: As per HPI. Denies: Anxiety, Auditory hallucinations, Depression, Homicidal thoughts, Suicidal thoughts, Visual hallucinations Hematological/Lymphatic: Reports: As per HPI. 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 - GI Hx GI Disorders: No - Hx Genitourinary Disorders: Yes Hx Prostate Problems: Yes Hx UTI: Yes - ENDOCRINE Hx Endocrine Disorders: Yes Hx Diabetes: Yes (ORAL MED CONTROLLED) - MUSCULOSKELETAL Hx Musculoskeletal Disorders: Yes - PSYCH Hx Psych Problems: No - HEMATOLOGY/ONCOLOGY Hx Hematology/Oncology Disorders: Yes Hx Anemia: Yes Hx Blood Transfusions: Yes Family Medical History Any Significant Family History?: No Physical Exam - General General Appearance: Alert, Oriented x3, Cooperative, Mild distress - Head Head exam: Normal inspection - Eye Eye exam: Normal appearance, PERRL Pupils: Normal accommodation - ENT ENT exam: Normal exam, Mucous membranes moist, Normal external ear exam, Normal orophraynx Ear exam: Normal external inspection. negative: External canal tenderness Nasal Exam: Normal inspection. negative: Discharge, Sinus tenderness Mouth exam: Normal external inspection, Tongue normal Teeth exam: Normal inspection. negative: Dental caries Throat exam: Normal inspection. negative: Tonsillar erythema, Tonsillar exudate - Neck Neck exam: Normal inspection, Full ROM. negative: Tenderness - Respiratory Respiratory exam: Normal lung sounds bilaterally. negative: Respiratory distress - Cardiovascular Cardiovascular Exam: Regular rate, Normal rhythm, Normal heart sounds - GI/Abdominal GI/Abdominal exam: Soft, Normal bowel sounds. negative: Tenderness - Rectal Rectal exam: Deferred - exam: Deferred - Extremities Extremities exam: Normal inspection, Full ROM, Normal capillary refill. negative: Tenderness - Back Back exam: Reports: Normal inspection, Full ROM. Denies: Muscle spasm, Rash noted, Tenderness - Neurological Neurological exam: Alert, CN II-XII intact, Normal gait, Oriented X3 - Psychiatric Psychiatric exam: Normal affect, Normal mood - Skin Skin exam: Dry, Intact, Pallor, Warm Course Vital Signs 12/12/17 09:07 Temperature 98.1 F Pulse Rate 99 H Respiratory 18 Rate Blood Pressure 92/62 Pulse Ox 98 - Reevaluation(s) Reevaluation #1: 12/12/17 10:37 d/w dr duke who will see pt after his cardiology appt in 2 days 12/12/17 10:37 Medical Decision Making - Lab Data Result diagrams: 12/12/17 09:15 12/12/17 09:15 Disposition Disposition: Discharge Clinical Impression: Anemia Qualifiers: Anemia type: other cause Other causes of anemia: other cause, not classified Qualified Code(s): D64.89 - Other specified anemias Hypotension Qualifiers: Hypotension type: unspecified hypotension type Qualified Code(s): I95.9 - Hypotension, unspecified Disposition: Home, Self-Care Condition: (1) Good Instructions: Hypotension (ED), Anemia (ED) Additional Instructions: follow up with dr duke and cardiology as scheduled. return sooner if worse. skip tomorrows lisinopril. check blood pressure and revaluate with cardiology Forms: Patient Portal Access Quality - Quality Measures Quality Measures: N/A - Blood Pressure Screening Does Patient Have Any of the Following: No Blood Pressure Classification: Normal BP Reading Systolic Measurement: 92 Diastolic Measurement: 62 Screening for High Blood Pressure: < Normal BP, F/U Not Required > [[id number]]
[2017-12-12 09:34] LABS: HEMATOCRIT 27.6 % (42.0-52.0); HEMOGLOBIN 8.5 gm/dl (14.0-18.0); MEAN CELL VOLUME 65.9 fl (81-97); MEAN CORPUSCULAR HGB CONC 30.8 g/dl (32-36); MEAN PLATELET VOLUME 9.2 fl (7.4-10.4); PLATELET COUNT 517 K/uL (130-400); RED BLOOD COUNT 4.19 M/uL (4.40-5.70); RED CELL DISTRIBUTION WIDTH 25.6 % (11.5-14.5); WHITE BLOOD COUNT W/O DIFF 12.1 K/uL (4.2-12.2)
[2017-12-12 09:38] LABS: MEAN CORPUSCULAR HEMOGLOBIN 20.2 pg (27-33)
[2017-12-12 09:44] LABS: BILIRUBIN,TOTAL 0.3 mg/dL (0.2-1.0); CREATININE 1.4 mg/dL (0.7-1.2); TOTAL PROTEIN 6.9 g/dL (6.6-8.7)
[2017-12-12 09:48] LABS: ANISOCYTOSIS 2+; MICROCYTOSIS 1+
[2017-12-12 09:49] LABS: ALB/GLOB RATIO 0.8 (1.1-1.8)
[2017-12-12 10:29] LABS: ABO GROUP O; ANTIBODY SCREEN NEGATIVE (NEGATIVE); RH TYPE POSITIVE
== END 2017-12-12 10:54 | disposition home or self-care (01) ==
LOC: ER 09:00
DX: D64.89 Other specified anemias (principal); I95.9 Hypotension, unspecified; R42 Dizziness and giddiness; E11.9 Type 2 diabetes mellitus without complications; Z79.84 Long term (current) use of oral hypoglycemic drugs; I10 Essential (primary) hypertension; C18.9 Malignant neoplasm of colon, unspecified
CPT/HCPCS: 80053; 85027; 86850; 86900; 86901; 99283